=== PATIENT | female | born 1975 | race Two or more races ===

== ENCOUNTER 2023-11-23 22:54 | Emergency (ER) | payer MEDICAID, OTHER ==
[~2023-11-23] VITALS: Ht 162.6 cm; Wt 176.4 kg
[2023-11-23 23:16] VITALS: BP 152/85; PULSE 84; RESP 18; O2SAT 96
== END 2023-11-24 06:00 | disposition left against medical advice (07) ==
LOC: ER 22:54
DX: R05.9 Cough, unspecified (principal); R06.7 Sneezing; R09.81 Nasal congestion; Z53.21 Procedure and treatment not carried out due to patient leaving prior to being seen by health care provider